=== PATIENT | male | born 1980 | race Caucasian/White ===

== ENCOUNTER 2017-10-05 17:39 | Emergency (ER) | payer BC ==
[~2017-10-05] VITALS: Ht 180.3 cm; Wt 85.3 kg
[2017-10-05 18:06] VITALS: Ht 180.3 cm; Wt 85.3 kg
[2017-10-05 19:32] VITALS: BP 119/102
== END 2017-10-05 19:32 | disposition home or self-care (01) ==
LOC: ED 17:39
DX: B34.9 Viral infection, unspecified (principal); R03.0 Elevated blood-pressure reading, without diagnosis of hypertension
CPT/HCPCS: J1885; Q0162